=== PATIENT | female | born 1990 | race Caucasian/White ===

== ENCOUNTER 2020-12-05 18:48 | Emergency (ER) | payer OTHER, SELFPAY ==
--- NOTE | ~2020-12-05 | CT_ITS ---
EXAMINATION: CT ABDOMEN AND PELVIS WITHOUT CONTRAST CLINICAL INFORMATION: Right-sided flank pain with hematuria COMPARISON: 07/04/2019 TECHNIQUE: Multidetector volumetric imaging was performed from the superior aspect of the liver through the pubic symphysis. Sagittal and coronal reformatted images were obtained on the technologist's workstation. This CT examination was performed using dose optimization techniques as appropriate, variously including the following: *Automated exposure control *Adjustment of mA and/or kV according to patient size (this includes techniques or standardized protocols for targeted exams where dose is matched to indication/reason for exam; i.e. extremities or head) *Use of iterative reconstruction technique DLP: 976 mGy-cm FINDINGS: LUNG BASES: The visualized lung bases are unremarkable. LIVER, GALLBLADDER, AND BILIARY TREE: The liver is normal in size, shape, and attenuation. No focal hepatic lesion or biliary ductal dilatation is present. The gallbladder is unremarkable with no evidence of radiopaque gallstones, gallbladder wall thickening, or obvious pericholecystic inflammatory changes. PANCREAS: Unremarkable. SPLEEN: Unremarkable. ADRENAL GLANDS: Unremarkable. KIDNEYS AND URETERS: The kidneys are normal in size, shape, and attenuation. No hydronephrosis, hydroureter, or calculi seen. No perinephric stranding. The medullary nephrocalcinosis probably present previously cannot be appreciated on the current study. BLADDER: Unremarkable. GASTROINTESTINAL TRACT: There is been previous bariatric surgery/gastric sleeve. The small and large bowel are unremarkable aside from colonic diverticula. The appendix is unremarkable. ABDOMINAL WALL: Small periumbilical hernia seen containing fat, unchanged LYMPH NODES: No retroperitoneal lymphadenopathy. VASCULAR: Unremarkable. PELVIC VISCERA: An anteverted uterus is present containing an IUD is in normal position. An abnormal adnexal mass or free intraperitoneal fluid is not seen. OSSEOUS STRUCTURES: Unremarkable. CT/CT abdomen pelvis wo con IMPRESSION: No urinary calculi or hydronephrosis is seen. An etiology for the patient's hematuria has not been found. Incidental note made of gastric sleeve, colonic diverticula, small periumbilical hernia and IUD.
[2020-12-05 19:29] VITALS: BP 109/66; PULSE 70; RESP 20; TEMP 37.1; O2SAT 100; BMI 45.6
[2020-12-05 21:37] VITALS: BP 99/77; PULSE 71; RESP 15; O2SAT 98
[2020-12-05 22:01] VITALS: BP 114/73; PULSE 62; RESP 16; TEMP 36.1; O2SAT 99
--- NOTE | 2020-12-05 22:14 | ED.ABDPAIN ---
HPI - Abdominal Pain General Chief Complaint: Abdominal Pain Stated Complaint: Abdominal pain Time Seen by Provider: 12/05/20 22:08 Source: patient Mode of arrival: ambulatory Limitations: no limitations History of Present Illness HPI narrative: Patient with diffuse abdominal pain for last 10 also constipated no urinary symptoms was seen by PCP with treating her for UTI for last 5 days with Keflex but patient denied any dysuria frequency or urgency no nausea no vomiting no diarrhea no fever or chills MD elicited complaint: abdominal pain Pertinent past history: constipation Onset (ago): week(s) Pain Consistency: constant Location: diffuse Severity: mild Quality: cramping Radiation: none Migration to: no migration Exacerbating factors: nothing Relieving factors: nothing Associated symptoms: denies other symptoms Related Data Previous Rx's Medication Instructions Recorded dicyclomine 20 mg PO QID PRN #20 tab 12/06/20 polyethylene glycol 3350 [Miralax] 17 g PO DAILY #510 g 12/06/20 Allergies Allergy/AdvReac Type Severity Reaction Status Date / Time Iodinated Contrast Media Allergy Unknown ANAPHYLAXIS Verified 12/05/20 21:40 [IODINATED CONTRAST MEDIA - IV DYE] shellfish derived Allergy Unknown ANAPHYLAXIS Verified 12/05/20 21:40 [SHELLFISH DERIVED] trazodone [TRAZODONE] Allergy Unknown ANAPHYLAXIS Verified 12/05/20 21:40 Review of Systems Review of Systems Constitutional : No Weight loss, No Fever, No Chills ENT/Mouth : No sore throat, No Rhinorrhea Eyes: No Eye Pain, No Swelling Cardiovascular : No Chest Pain, no palpitations Respiratory : No Cough, No Sputum, no shortness of breath Gastrointestinal : no Nausea, No Vomiting, No Diarrhea, ++ abdominal Pain, no black stools constipation+ Genitourinary : No Dysuria, No Urinary Frequency Musculoskeletal : No joint pain, No Myalgias, No Joint Swelling Skin : No Skin Lesions, No rash Neuro : No Weakness, No Numbness, No Dizziness, No Headache Psych : No Anxiety/Panic, No Depression Heme/Lymph: No Bruising, No Lymphadenopathy Endocrine : No Polyuria, No Polydipsia All other systems reviewed and are negative Physical Exam Vital Signs: Vital Signs: Last Vital Signs Temp 97 F 12/05/20 22:01 Pulse 62 12/05/20 22:01 Resp 16 12/05/20 22:01 BP 114/73 12/05/20 22:01 Pulse Ox 99 12/05/20 22:01 Body Mass Index 45.6 Appearance: Alert. Oriented X3. No acute distress. Eyes: Pupils equal, round and reactive to light. ENT: Pharynx normal. Neck: Normal inspection. Neck supple. CVS: Normal heart rate and rhythm. Pulses normal. Respiratory: No respiratory distress. Breath sounds normal. Abdomen: Soft mild diffuse tenderness no guarding or rebound tenderness Bowel sounds are present, no mass palpable, no CVA tenderness Skin: Skin warm and dry. Normal skin color. Normal skin turgor. Extremities: No lower extremity edema. Neuro: Oriented X 3. No motor deficit. No sensory deficit. MDM - Abdominal Pain MDM Narrative Medical decision making narrative: Patient has nonspecific pain CT scan is negative for any acute pathology urine showed red cells patient does have history of constipation symptoms likely from IBS will discharge patient on dicyclomine Lab Data Attestation: I reviewed the patient's lab results. Labs: Lab Results 12/05/20 12/05/20 Range/Units 22:06 22:06 Urine Color YELLOW Urine Appearance CLEAR Urine pH 6.5 (5.0-8.0) Ur Specific [place] 1.025 (1.005-1.025) Urine Protein NEG (NEG-TRACE) MG/DL Urine Glucose (UA) NEG (NEG) MG/DL Urine Ketones NEG (NEG) MG/DL Urine Blood 2+ H (NEG) Urine Nitrite NEG (NEG) Ur Leukocyte Esterase NEG (NEG) Urine RBC 15-29 H (0) /HPF Urine WBC 1-4 (0-4) /HPF Ur Squamous Epith Cells 2+ /LPF Urine Bacteria 1+ /LPF Urine Mucus 1+ /LPF Urine Test NEGATIVE (NEGATIVE) Discharge Plan Discharge Clinical Impression: Irritable bowel syndrome Qualifiers: Irritable bowel syndrome type: with constipation Qualified Code(s): K58.1 - Irritable bowel syndrome with constipation Patient Disposition: Home, Self-Care Instructions: Irritable Bowel Syndrome (ED) Additional Instructions: drink plenty of fluids meds as adv follow up with pcp/manager heart failure if pain continues Prescriptions: New dicyclomine 20 mg tablet 20 mg PO QID PRN (Reason: abdominal pain) Qty: 20 RF: 0 polyethylene glycol 3350 [Miralax] 17 gram/dose powder 17 g PO DAILY Qty: 510 RF: 0 PMFSH Past Medical History Medical History (Updated 12/06/20 @ 00:43 by Mustapha Christy MD) Constipation Kidney stone Surgical History (Updated 12/06/20 @ 00:43 by Mustapha Christy MD) Hx of bariatric surgery Social History Social History Alcohol intake: never Smoking Status: Never smoker Use of substances other than those prescribed or required for medical reasons: No Advance Directives: No Advance Directives Information Provided: Yes
[2020-12-05 22:21] LABS: Glucose Urine UA NEG (NEG); Leukocyte Esterase Urine NEG (NEG); Nitrite Urine NEG (NEG); PH 6.5 (5.0-8.0); Specific Gravity - Urine 1.025 (1.005-1.025); Urine Blood 2+ (NEG); Urine Ketones NEG (NEG); Urine Protein NEG (NEG-TRACE)
[2020-12-05 22:27] LABS: Appearance Urine CLEAR; Color Urine YELLOW
[2020-12-05 22:38] LABS: Squamous Epithelial Cell Urine 2+ /LPF
[2020-12-05 22:39] LABS: Bacteria Urine 1+ /LPF; Mucus Urine 1+ /LPF
[2020-12-05 23:31] LABS: UPreg QC Valid YES; Urine Pregnancy NEGATIVE (NEGATIVE)
[2020-12-06] MEDS: Dicyclomine HCl 10 MG CAPSULE 20 MG PO (00:42)
== END 2020-12-06 01:34 | disposition home or self-care (01) ==
PROVIDERS: Emergency Provider Internal Medicine; PCP Internal Medicine
DX: K58.1 Irritable bowel syndrome with constipation (principal); R10.9 Unspecified abdominal pain; Z79.899 Other long term (current) drug therapy
CPT/HCPCS: 36415; 74176; 81001; 81025; 99284